=== PATIENT | male | born 1960 | race Caucasian/White ===

== ENCOUNTER → 2017-06-09 | Day surgery (SDC) | payer BC ==
[~2017-06-09] MED LIST: Lidocaine 1% 20 ML MDV ONE
--- NOTE | 2017-06-10 09:18 | OR ---
DATE OF OPERATION: 06/09/2017 PREOPERATIVE DIAGNOSIS: VENOUS INSUFFICIENCY WITH PAINFUL VARICOSE VEINS. POSTOPERATIVE DIAGNOSIS: VENOUS INSUFFICIENCY WITH PAINFUL VARICOSE VEINS. SURGEON: Eliezer Ruiz MD PROCEDURE: OBED RIGHT GSV. ANESTHESIA: Local with tumescent. COMPLICATIONS: None. SPECIMEN: None. FINDINGS: Successful OBED right GSV. INDICATIONS: The patient has documented venous insufficiency via ultrasound. He has failed outpatient conservative therapy and elects to proceed with endovenous ablation. DESCRIPTION OF PROCEDURE: The patient was brought to the operating room site and the insufficient saphenous vein on the affected leg mapped via ultrasound and diagrammed on the overlying skin along with access site. The entire limb was prepped and draped in sterile fashion. The patient was placed in reverse Trendelenburg position. Local anesthesia was instilled over the access site. Vein was accessed using ultrasound guidance and Seldinger technique, a guidewire was introduced through the needle. A small incision was made with the #11 blade scalpel and needle was then exchanged over the guidewire for a 6-Serbian sheath held in place by skin tension. Guidewire was removed. The sheath was flushed and the radiofrequency probe was placed into the vein through the sheath and positioned approximately 2.2 cm distal to the saphenofemoral junction under ultrasound guidance. After probe position verified via ultrasound, tumescent anesthesia was infiltrated precisely into the perivenous compartment along the entire length of the vein from the entry site to the saphenofemoral junction achieving a halo effect around the vein. The patient was placed back in Trendelenburg position to exsanguinate the superficial system. After radiofrequency probe position confirmed via ultrasound and under direct external compression along the length of the heating element, radiofrequency energy was applied. The vein was segmentally ablated by heating a 7 cm segment and indexing the catheter forward 6.5 cm until treatment length complete. Device temperature was kept at 120 degrees Celsius with an initial power level of 40 freeman drop in a below 20 for each treatment. Total radiofrequency treatment time was 2 minutes 52 seconds with 9 radiofrequency cycles. A total of 450 mL of tumescent anesthetic was used. Repeat ultrasound of the vein was performed confirming successful treatment. The catheter and sheath were withdrawn and hemostasis was established with direct pressure. Skin incision was closed with bandage and compression wrap from the level of the foot to the groin. The patient was stable in the recovery room. MARLON/MATEUS /[id number]
== END ==
LOC: CC.SDS 06:38
PROVIDERS: ATTEND Family Medicine
DX: I87.2 Venous insufficiency (chronic) (peripheral) (principal); I83.811 Varicose veins of right lower extremity with pain; I10 Essential (primary) hypertension; E78.00 Pure hypercholesterolemia, unspecified; Z79.899 Other long term (current) drug therapy; Z90.49 Acquired absence of other specified parts of digestive tract; Z98.890 Other specified postprocedural states; Z98.52 Vasectomy status
CPT/HCPCS: A4216; C1769